=== PATIENT | female | born 1995 | race Asian ===

== ENCOUNTER → 2017-12-19 | Outpatient (CLI) | payer OTHER ==
[2017-12-22 09:24] LABS: HCG, SERUM QUANTITATIVE 40422 MIU/ML
== END ==
LOC: M LAB 12:03
DX: N91.2 Amenorrhea, unspecified (principal)
CPT/HCPCS: 84702

== ENCOUNTER → 2017-12-21 | Outpatient (CLI) | payer OTHER ==
[2017-12-21 14:40] LABS: HCG, SERUM QUANTITATIVE 48053 MIU/ML
== END ==
LOC: M LAB 13:40
DX: N91.2 Amenorrhea, unspecified (principal)

== ENCOUNTER → 2018-01-02 | Outpatient (CLI) | payer OTHER | LOC: M SMT 15:03 | DX: O02.1 Missed abortion (principal) ==

== ENCOUNTER 2018-01-13 11:19 | Day surgery (SDC) | payer OTHER ==
[2018-01-13 11:53] LABS: HEMATOCRIT 39.1 % (36.0-47.0); HEMOGLOBIN 13.3 g/dl (12.0-16.0)
[2018-01-13] MEDS ORDERED: MIDAZOLAM INJ 2 MG/2 ML VIAL (J2250) As Ordered (14:50)
[2018-01-13] MEDS ORDERED: PROPOFOL 200 MG/20 ML VIAL As Ordered (14:50)
[2018-01-13] MEDS ORDERED: fentaNYL 100 MCG/2 ML INJECTION (J3010) As Ordered (14:50)
[2018-01-13] MEDS ORDERED: LIDOCAINE 2% INJ 100 MG/5 ML SDV (FOR ANES.) As Ordered (14:50)
[2018-01-13] MEDS ORDERED: ONDANSETRON 4MG/2ML VIAL (J2405) As Ordered ×2 (14:50→14:52)
[2018-01-13] MEDS ORDERED: dexameTHASONE 4 MG/ML 1ML VIAL (J1100) As Ordered (14:50)
[2018-01-13] MEDS ORDERED: KETOROLAC 60 MG/2 ML VIAL (J1885) As Ordered (14:50)
[2018-01-13] MEDS ORDERED: NORCO, ANEXSIA 5/325MG TABLET (HYDROcodone/ACETAMINOPHEN) As Ordered (15:05)
[2018-01-13] MEDS: NORCO, ANEXSIA 5/325MG TABLET (HYDROcodone/ACETAMINOPHEN) PO (15:15)
[2018-01-13] MEDS ORDERED: LR 1,000 ML IV (15:15)
[2018-01-13] MEDS ORDERED: ONDANSETRON 4MG/2ML VIAL (J2405) IV (15:15)
== END 2018-01-13 17:26 | disposition home or self-care (01) ==
LOC: M SDC 17:26
DX: O02.1 Missed abortion (principal)
CPT/HCPCS: 59820